=== PATIENT | female | born 1965 | race Caucasian/White ===

== ENCOUNTER 2019-09-11 14:16 | Emergency (ER) | payer OTHER, SELFPAY ==
[2019-09-11 14:17] VITALS: BP 113/83; PULSE 86; RESP 18; TEMP 37; O2SAT 100; BMI 24.7
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
[2019-09-11] MEDS: morphine 8 MG/ML Syringe 6 MG IV (14:42)
[2019-09-11] MEDS: Ondansetron 4 MG/2 ML Vial IV (14:42)
[2019-09-11] MEDS: 0.9% Normal Saline 1,000 ML 150 ML IV (14:43)
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
[2019-09-11 15:31] LABS: Absolute Lymphocyte Count 1.33 X10^3/uL (0.83-4.51); Absolute Neutrophil Count 6.8 X10^3/uL (2.0-7.7); Basophil# 0.04 X10^3/uL; Basophil% 0.5 % (0-1); Eosinophils% 1.1 % (0-5); Hematocrit 35.6 % (37-47); Hemoglobin 11.6 g/dL (12.0-15.0); Lymphocyte # 1.33 X10^3/ul (4.0); Mean Corp Hgb Conc 32.6 g/dL (32-36); Mean Corpuscular Hgb 29.9 pg (27.0-32.0); Mean Corpuscular Volume 91.8 fL (81-99); Mean Platelet Vol. 9.2 fl (6.2-12.0); Monocyte% 6.8 % (0-10); NRBC Flagged by Analyzer 0 % (0-5); Neutrophil # 6.78 X10^3/uL (2.7-7.7); Neutrophil % 76.4 % (47-70); Platelet Count 354 K/mm3 (150-450); RBC Distribution Width SD 47.2 fl (35.1-43.9); Red Blood Count 3.88 M/mm3 (4.2-5.4); White Blood Count 8.9 K/mm3 (4.4-11.0)
[2019-09-11] MEDS: Morphine 4 MG/ML Syringe IV (15:34)
[2019-09-11 15:41] LABS: Anion Gap 8 (5-15); BUN 14 mg/dL (7-18); BUN/Creat Ratio 14.4 RATIO (10-20); Calcium,Total 8.7 mg/dL (8.5-10.1); Chloride 111 mmol/L (98-107); Creatinine, Serum 0.97 mg/dL (0.55-1.02); EST Glomerular Filtration Rate 63 mL/min (>60); Est Glom Filt Rate - Afr Amer 76 mL/min (>60); Estimated Creatinine Clearance 53.57 ml/min; Glucose 96 mg/dL (74-106); Potassium 3.3 mmol/L (3.5-5.1); Sodium Level 143 mmol/L (136-145)
--- NOTE | 2019-09-11 15:57 | NURSING ---
CALLED [facility] FOR TRANSPORT
[2019-09-11] MEDS: Cefazolin 1 GM/50 ML BAG IV (16:10)
--- NOTE | 2019-09-11 16:19 | ED.RN ---
Adacel was overrided to remove and unable to put order in. Given in L deltoid- at 1618. Lot # [id number]. Exp Date
[2019-09-11 16:35] VITALS: BP 112/72; PULSE 90; RESP 18
== END 2019-09-11 16:40 | disposition home or self-care (01) ==
PROVIDERS: Emergency Provider Emergency Medicine; PCP Family Medicine
DX: S82.252B Displaced comminuted fracture of shaft of left tibia, initial encounter for open fracture type I or II (principal); S82.432B Displaced oblique fracture of shaft of left fibula, initial encounter for open fracture type I or II; V23.5XXA Motorcycle passenger injured in collision with car, pick-up truck or van in traffic accident, initial encounter; Y93.55 Activity, bike riding; Y92.410 Unspecified street and highway as the place of occurrence of the external cause; Y99.8 Other external cause status
CPT/HCPCS: 73590; 80048; 85025; 90715; 96361; 96365; 96375; 96376; 99285; J7030; A4216; J2405